=== PATIENT | female | born 1980 | race Hispanic/Latino ===

== ENCOUNTER 2021-12-16 18:37 | Emergency (ER) | payer BC ==
[~2021-12-16] VITALS: Ht 167.6 cm; Wt 69.4 kg
[2021-12-16] MEDS ORDERED: CEPHALEXIN500 MG PO (22:07)
[2021-12-16 22:15] VITALS: BP 141/90
== END 2021-12-16 22:22 | disposition home or self-care (01) ==
LOC: FSED 19:35
DX: O20.9 Hemorrhage in early pregnancy, unspecified (principal); O23.41 Unspecified infection of urinary tract in pregnancy, first trimester; N39.0 Urinary tract infection, site not specified; R50.9 Fever, unspecified; R03.0 Elevated blood-pressure reading, without diagnosis of hypertension
CPT/HCPCS: 76801; 81003; 81025; 99283